=== PATIENT | female | born 1990 | race Caucasian/White ===

== ENCOUNTER 2017-07-28 08:28 | Emergency (ER) | payer MEDICAID ==
[2017-07-28 09:18] LABS: ABS Basophils 0 10^3/ul (0-0.2); ABS Eosinophils 0 10^3/ul (0-0.6); ABS Lymphocytes 2.8 10^3/ul (1.0-4.8); ABS Monocytes 0.7 10^3/ul (0-0.8); ABS Neutrophils 6.9 10^3/ul (1.5-7.7); ABS Nucleated RBC 0 10^3/ul; Eosinophil % 0.4 % (0-6); Hematocrit 36 % (35-47); Hemoglobin 12.7 g/dl (12.0-16.0); Lymphocyte % 26.8 % (25-47); Mean Corpuscular HGB Conc 35 g/dl (31-36); Mean Corpuscular Hemoglobin 31 pg (27-31); Mean Corpuscular Volume 89 fL (80-97); Mean Platelet Volume 8 um3 (7.4-10.4); Nucleated Red Blood Cells % 0; Platelet Count 269 10^3/ul (150-450); Red Blood Count 4.03 10^6/ul (4.0-5.4); Red Cell Distribution Width 13 % (10.5-15); White Blood Count 10.5 10^3/ul (3.5-10.8)
[2017-07-28 09:33] LABS: EGFR Non-African American 94.9 (>60)
[2017-07-28] MEDS ORDERED: Potassium Chlor TAB* 20 MEQ TAB.ER PO ONE (10:03)
--- NOTE | 2017-07-28 10:43 | RAD ---
HISTORY: with vaginal bleeding COMPARISONS: None TECHNIQUE: Multiple transverse and longitudinal ultrasound images were obtained of the pelvis using grayscale, color Doppler, spectral Doppler imaging and M-Mode Doppler imaging using the endovaginal transducer. FINDINGS: UTERUS: The uterus is normal in shape, size, contour, and echotexture. GESTATION: There is a single live intrauterine gestation. The crown-rump length measures 0.5 cm for a gestational age of 6 weeks and 3 days. The MIRIAM is March 20, 2018 based on the crown-rump length.. cardiac motion is detected at a rate of 120 beats per minute. Gross movement is identified. anatomy cannot be assessed secondary to early dates. The amniotic fluid is qualitatively normal. There is a crescentic hypoechoic fluid collection consistent with subchorionic hemorrhage measuring 0.1 x 1.8 x 1.9 cm in size. CUL-DE-SAC: There is no free fluid within the cul-de-sac. RIGHT OVARY: The right ovary measures 3.6 x 2.1 x 2.7 cm. A echogenic cystic lesion suggestive of a corpus luteum is noted. Normal arterial and venous waveforms are identifiable within the ovary on spectral Doppler imaging. LEFT OVARY: The left ovary measures 3.1 x 2.2 x 1.4 cm. Normal arterial and venous waveforms are identifiable within the ovary on spectral Doppler imaging. BLADDER: The bladder is not well visualized. OTHER: The cervix measures 4 cm in length. IMPRESSION: 1. SINGLE LIVE INTRAUTERINE GESTATION AT 6 WEEKS, 3 DAYS BY CROWN-RUMP LENGTH. 2. THERE IS A SMALL SUBCHORIONIC HEMORRHAGE.
[2017-07-28 11:00] VITALS: BP 111/67
--- NOTE | 2017-07-28 11:10 | ED ---
Anjana West Gabriel, scribed for New Ledbetter MD on 07/28/17 at 0909 . - HPI Summary HPI Summary: This patient is a 26 year old F presenting to [facility] accompanied by her partner with a chief complaint of ABD cramping that began last night while she was at work. Pt is 6 weeks . The patient rates the pain 6/10 in severity. Patient reports pressure on her cervix, n/v, and GERD. Patient denies vaginal discharge, fever, chills, and vaginal bleeding. LNMP was around June 21. She has received an US to confirm the and they found free fluid around the gestational sac that could be a possible subchorionic hemorrhage. - History of Current Complaint Chief Complaint: EDAbdPain Stated Complaint: OB PROBLEM Time Seen by Provider: 07/28/17 08:50 Hx Obtained From: Patient Chief Complaint: Concern for Embryonic Dem Onset/Duration: Started Hours Ago, Still Present Timing: Constant Severity: Moderate Current Severity: Moderate Pain Intensity: 6 Location of Pain: Diffuse Character: Cramping Associated Signs and Symptoms: Positive: Negative - vaginal discharge, fever, chills, and vaginal bleeding., Other: - pressure on her cervix, n/v, and GERD. - Allergies/Home Medications Allergies/Adverse Reactions: Allergies Allergy/AdvReac Type Severity Reaction Status Date / Time No Known Allergies Allergy Verified 07/28/17 08:36 PMH/Surg Hx/FS Hx/Imm Hx Endocrine/Hematology History: Denies: Hx Diabetes Cardiovascular History: Denies: Hx Angina, Hx Atrial Fibrillation Respiratory History: Denies: Hx Asthma, Hx Bronchopulmonary Dysplasia, Hx Chronic Bronchitis, Hx Chronic Obstructive Pulmonary Disease (COPD) GI History: Denies: Hx Crohn's Disease, Hx Diverticulosis History: Denies: Hx Acute Renal Failure, Hx Benign Prostatic Hyperplasia Musculoskeletal History: Denies: Hx Arthritis Sensory History: Denies: Hx Contacts or Glasses Opthamlomology History: Denies: Hx Contacts or Glasses Psychiatric History: Reports: Hx Substance Abuse Infectious Disease History: No Infectious Disease History: Denies: Traveled Outside the [place] in Last 30 Days - Family History Known Family History: Positive: Hypertension - grandmother Negative: Cardiac Disease, Diabetes, Renal Disease, Respiratory Disease, Seizure Disorder - Social History Occupation: Employed Full-time Alcohol Use: None Substance Use Type: Reports: None Smoking Status (MU): Unknown if Ever Smoked Review of Systems Negative: Fever, Chills Positive: Abdominal Pain - cramping , Vomiting, Nausea, Other - GERD Genitourinary: Negative - vaginal bleeding Positive: other - pressure on her cervix. Negative: discharge All Other Systems Reviewed And Are Negative: Yes Physical Exam - Summary Physical Exam Summary: VITAL SIGNS: Reviewed. GENERAL: Patient is a well-developed and nourished female who is lying comfortable in the stretcher. Patient is not in any acute respiratory distress. HEAD AND FACE: Normocephalic and atraumatic. EYES: PERRLA, EOMI x 2, No injected conjunctiva. EARS: Hearing grossly intact. Ear canals and tympanic membranes are WNL. MOUTH: Oropharynx within normal limits. NECK: Supple, trachea is midline, no adenopathy, no JVD. CHEST: Symmetric, no tenderness at palpation LUNGS: Clear to auscultation bilaterally. No wheezing or crackles. CVS: RRR, S1 and S2 present, no murmurs or gallops appreciated. ABDOMEN: Soft, non-tender. No signs of distention. Positive bowel sounds. No rebound no guarding, and no masses palpated. No abdominal bruit or pulsations. EXTREMITIES: FROM in all major joints, no edema, no cyanosis or clubbing. NEURO: Alert and oriented x 3. No acute neurological deficits. Speech is normal. SKIN: Dry and warm - Physical Exam Triage Information Reviewed: Yes Vital Signs Reviewed: Yes Diagnostics - Vital Signs Vital Signs Temp Pulse Resp BP Pulse Ox 07/28/17 08:48 94 99 07/28/17 08:47 120/74 07/28/17 08:32 98.2 F 96 16 125/79 100 - Laboratory Lab Results: Lab Results 07/28/17 07/28/17 Range/Units 09:05 09:05 WBC 10.5 (3.5-10.8) 10^3/ul RBC 4.03 (4.0-5.4) 10^6/ul Hgb 12.7 (12.0-16.0) g/dl Hct 36 (35-47) % MCV 89 (80-97) fL MCH 31 (27-31) pg MCHC 35 (31-36) g/dl RDW 13 (10.5-15) % Plt Count 269 (150-450) 10^3/ul MPV 8 (7.4-10.4) um3 Neut % (Auto) 66.1 (38-83) % Lymph % (Auto) 26.8 (25-47) % [place] % (Auto) 6.3 (0-7) % Eos % (Auto) 0.4 (0-6) % Baso % (Auto) 0.4 (0-2) % Absolute Neuts (auto) 6.9 (1.5-7.7) 10^3/ul Absolute Lymphs (auto) 2.8 (1.0-4.8) 10^3/ul Absolute Monos (auto) 0.7 (0-0.8) 10^3/ul Absolute Eos (auto) 0 (0-0.6) 10^3/ul Absolute Basos (auto) 0 (0-0.2) 10^3/ul Absolute Nucleated RBC 0 10^3/ul Nucleated RBC % 0 Sodium 134 (133-145) mmol/L Potassium 3.4 L (3.5-5.0) mmol/L Chloride 101 (101-111) mmol/L Carbon Dioxide 23 (22-32) mmol/L Anion Gap 10 (2-11) mmol/L BUN 9 (6-24) mg/dL Creatinine 0.75 (0.51-0.95) mg/dL Est GFR ( Amer) 122.1 (>60) Est GFR (Non-Af Amer) 94.9 (>60) BUN/Creatinine Ratio 12.0 (8-20) Glucose 92 (70-100) mg/dL Calcium 10.0 (8.6-10.3) mg/dL Total Bilirubin 0.40 (0.2-1.0) mg/dL AST 16 (13-39) U/L ALT 12 (7-52) U/L Alkaline Phosphatase 44 (34-104) U/L Total Protein 7.8 (6.4-8.9) g/dL Albumin 4.5 (3.2-5.2) g/dL Globulin 3.3 (2-4) g/dL Albumin/Globulin Ratio 1.4 (1-3) Beta HCG, Quant 13871.00 mIU/mL Result Diagrams: 07/28/17 09:05 07/28/17 09:05 Lab Statement: Any lab studies that have been ordered have been reviewed, and results considered in the medical decision making process. - Additional Comments Diagnostic Additional Comments: Tansvaginal US reveals, per radiologist, 1. SINGLE LIVE INTRAUTERINE GESTATION AT 6 WEEKS, 3 DAYS BY CROWN-RUMP LENGTH. 2. THERE IS A SMALL SUBCHORIONIC HEMORRHAGE. ED physician has reviewed this radiology report. Course/Dx - Course Assessment/Plan: This patient is a 26 year old F presenting to [facility] accompanied by her partner with a chief complaint of ABD cramping that began last night while she was at work. Pt is 6 weeks . The patient rates the pain 6/10 in severity. Patient reports pressure on her cervix, n/v, and GERD. Patient denies vaginal discharge, fever, chills, and vaginal bleeding. LNMP was around June 21. She has received an US to confirm the and they found free fluid around the gestational sac that could be possible a subchorionic hemorrhage. . Tansvaginal US reveals, per radiologist, 1. SINGLE LIVE INTRAUTERINE GESTATION AT 6 WEEKS, 3 DAYS BY CROWN-RUMP LENGTH. 2. THERE IS A SMALL SUBCHORIONIC HEMORRHAGE. Dx abdominal cramping and . Test results with no significant abnormalities except for a beta HCG 39831. She has no vaginal discharge or bleeding thus no pelvic exam. In the ED course the patient was given potassium Chloride. Patient will be discharged and follow up from physician referral center and her [facility]TH[facility]OLOG[facility]. The patient is agreeable with this plan. I discussed all the findings and test results with the patient. Patient was instructed to return to the emergency room immediately if any of the symptoms return or worsens. Plan of care was discussed with the patient and understands and agrees. All questions were answered at patient satisfaction. There were no further complaints or concerns. Lung exam before discharge: CTA B/L. Good air exchange. No wheezing or crackles heard. CVS: S1 and S2 present. No murmurs appreciated. Patient is alert and oriented x 3. Patient is hemodynamically stable. Patient will be discharged home with follow up PCP in the next 2-3 days - Diagnoses Provider Diagnoses: Abdominal cramping, Discharge - Discharge Plan Condition: Stable Disposition: HOME Patient Education Materials: (ED) Referrals: [facility] PHYSICIAN REFERRAL [Outside] - 5 Days Additional Instructions: RETURN TO EMERGENCY DEPARTMENT FOR ANY NEW OR WORSENING SYMPTOMS The documentation as recorded by the Anjana luke Gabriel accurately reflects the service I personally performed and the decisions made by me, New Ledbetter MD.
== END 2017-07-28 11:00 | disposition home or self-care (01) ==
LOC: ED 08:28
DX: O26.891 Other specified pregnancy related conditions, first trimester (principal); K21.9 Gastro-esophageal reflux disease without esophagitis; R10.9 Unspecified abdominal pain; R50.9 Fever, unspecified; R68.83 Chills (without fever); R11.2 Nausea with vomiting, unspecified; Z3A.01 Less than 8 weeks gestation of pregnancy
CPT/HCPCS: 36415; 76817; 80053; 84702; 85025; 86703; 86803; 99282; A9270-GY